=== PATIENT | female | born 1995 | race Caucasian/White ===

== ENCOUNTER 2021-11-22 16:28 | Emergency (ER) | payer SELFPAY | END 2021-11-22 18:07 | disposition home or self-care (01) | LOC: JD.ED 16:28 | DX: S60.211A Contusion of right wrist, initial encounter (principal); Z72.0 Tobacco use; W50.0XXA Accidental hit or strike by another person, initial encounter | CPT/HCPCS: 73110-26-RT; 73110-RT; 99283-25 ==